=== PATIENT | male | born 1995 | race Caucasian/White ===

== ENCOUNTER 2018-07-11 13:56 | Emergency (ER) | payer OTHER ==
[~2018-07-11] VITALS: Ht 172.7 cm; Wt 73.9 kg
[2018-07-11 14:01] VITALS: BP 137/118; PULSE 66; TEMP 36.7; O2SAT 100; Ht 172.7 cm; Wt 73.9 kg
--- NOTE | 2018-07-11 14:39 | DIAGNOSTIC IMAGING REPORT ---
L KNEE 1 OR 2 VIEWS ROUTINE CLINICAL HISTORY: knee pain pain COMPARISON: None. DISCUSSION: Small benign bony exostosis medial epicondylar region of the distal femur. No well-defined acute bony abnormality. No significant joint effusion. No fracture or dislocation. There is no evidence for soft tissue swelling. IMPRESSION: Small benign bony exostosis medial femoral condyle. Otherwise negative study. The above report was generated using voice recognition software. It may contain grammatical, syntax or spelling errors. Electronically signed by: Bk Alfonso M.D. 07/11/2018 2:38 PM Dictated Date/Time: 07/11/2018 2:37 PM
--- NOTE | 2018-07-11 14:46 | EMERGENCY ROOM VISIT NOTE ---
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 Patient states that at work today he was climbing a tree and was wearing spikes on his shoes and he felt a pop in his left knee. Since that time when he bears weight and takes a few steps he feels a "popping sensation in the left knee. The patient states it is not his patella dislocating. He denies any locking or giving out of the knee. The patient has been able to bear weight. The patient had right knee surgery in the past by an orthopedic surgeon in [place]. He does not remember the name. REVIEW OF SYSTEMS: 6 system review was performed and was negative unless stated otherwise in history of present illness. PMH: The patient is healthy; right knee surgery SOCIAL HISTORY: Patient admits to tobacco use but denies any alcohol use. PHYSICAL EXAM: Vital Signs: Were reviewed reviewed Nurse's notes. GENERAL: 23- year-old male appears in no acute distress. MENTAL STATUS: Alert, oriented, and cooperative. Left KNEE: No gross bony deformity noted. No erythema or edema noted. The patient is tender to palpation over the medial aspect of the knee joint. There is no joint effusion. Patient has full range of motion of the knee. There is no ligamentous instability. The skin is normal and intact. EMERGENCY DEPARTMENT COURSE: The patient was evaluated. The patient was offered pain medication but declined. X-ray of the left knee was ordered interpreted by the radiologist and myself. DIAGNOSTICS:L KNEE 1 OR 2 VIEWS ROUTINE CLINICAL HISTORY: knee pain pain COMPARISON: None. DISCUSSION: Small benign bony exostosis medial epicondylar region of the distal femur. No well-defined acute bony abnormality. No significant joint effusion. No fracture or dislocation. There is no evidence for soft tissue swelling. IMPRESSION: Small benign bony exostosis medial femoral condyle. Otherwise negative study. The above report was generated using voice recognition software. It may contain grammatical, syntax or spelling errors. Electronically signed by: Bk Alfonso M.D. 07/11/2018 2:38 PM Patient was informed of the findings. The patient was placed in a knee immobilizer and discharged home in stable condition. DIAGNOSIS: Left knee injury DISCHARGE INSTRUCTIONS: Ibuprofen 600 mg every 6 hours with food for pain. Wear knee immobilizer until evaluated by orthopedics. Call your orthopedic surgeon or talk with your place of employment for approved Worker's Comp. orthopedic surgeon. Recommend an appointment as soon as possible. Off work until evaluated by orthopedics. Vital Signs Date Time Temp Pulse Resp B/P (MAP) Pulse Ox O2 Delivery O2 Flow Rate FiO2 07/11/18 14:01 36.7 66 18 137/118 100 Room Air Departure Information Patient Instructions My [facility]
== END 2018-07-11 14:56 | disposition home or self-care (01) ==
LOC: C.EDB 13:58 → C.EDD 14:56
DX: S89.92XA Unspecified injury of left lower leg, initial encounter (principal); X58.XXXA Exposure to other specified factors, initial encounter; Y93.39 Activity, other involving climbing, rappelling and jumping off; Z98.890 Other specified postprocedural states; F17.200 Nicotine dependence, unspecified, uncomplicated